=== PATIENT | female | born 1970 | race Two or more races ===

== ENCOUNTER → 2024-12-22 | Outpatient (CLI) | payer MEDICAID, SELFPAY ==
--- NOTE | 2024-12-22 09:00 | XR_ITS ---
Examination: Breast ultrasound, unilateral, left complete Date and time of exam: December 22, 2024 0859 hours INDICATIONS: Left breast pain beginning 3 months ago, family history breast cancer Technique: Real-time gama scale ultrasonographic imaging performed left breast including all 4 quadrants as well as nipple retroareolar and axillary region. Findings: 2:00 cyst 5 x 5 mm 8:00 cyst 5 x 4 mm No solid nodules IMPRESSION: BI-RADS Category 2: Benign findings
--- NOTE | 2024-12-22 09:30 | XR_ITS ---
Examination: Diagnostic digital mammography, unilateral, LEFT Computer aided detection 3-D breast Tomosynthesis, unilateral Date and time of exam: December 14, 2024 0911 hours INDICATIONS: Outside mammogram November 13, 2024 left breast 12:00 8mm nodule anterior depth Technique: Nonmagnified MLO, CC views of the left breast have been obtained, reconstructed from 3-D Tomosynthesis images. R2 computer aided detection program utilized for evaluation of suspicious masses and/or abnormal calcifications. 3-D Tomosynthesis images obtained. Findings: The breast is heterogeneously dense, which may obscure small masses Benign calcifications Mild focal asymmetry 14 mm outer left breast on the spot compression cc view Impression: BI-RADS Category 3: Probably benign findings One additional 6 month left mammogram follow-up is needed to document stability of focal asymmetry described above
== END | disposition home or self-care (01) ==
PROVIDERS: PCP Nurse Practitioner Family; Referring Provider Nurse Practitioner Family; Visit Provider Nurse Practitioner Family
DX: N64.89 Other specified disorders of breast (principal); N60.02 Solitary cyst of left breast
CPT/HCPCS: 76641; 77061; 77065; G0279

== ENCOUNTER 2024-12-25 13:00 | Outpatient (RCR) | payer MEDICAID, SELFPAY ==
--- NOTE | 2024-12-14 13:37 | PTNOTE_ITS ---
PT OP Initial Eval Patient Information Outpatient Physical Therapy Treatment Date: 12/14/24 Visit Reasons: BILATERAL SHOULDER PAIN Medical Diagnosis: M25.512 M25.511 Treatment Dx #1: B shoulder pain Start of Care: 12/14/24 Date of Onset: 3 months ago Smoking Status Smoking Status: Never smoker Initial Assessment Subjective: Pt is 54 yr old indonesian speaking female who reports B shoulder pain insidious onset x3 months. Increased pain with lifting things,reaching up and at night it hurts more. PMH: HTN, anxiety, Imaging: none Pt goal: less shoulder pain Objective: B shoulder AROM: ? FF: 105 deg ? Abd: 95 deg ? ER: 85 deg ? HBB: to glutes with pain ? Strength: 3+/5 in all planes Rincon-Cosmo: positive on L ? PROM: end-range pain with capsular tightness Assessment: Pt presents with decreased shoulder ROM and strength in all planes limited by pain L>R consistent with RC impingement/tendinopathy. Pt requires skilled therapy in order to decrease pain and improve ROM and strength and has fair rehab potential. Short Term and Residential Goals 1. Ind with HEP ? 2. Improved AROM of B shoulders to at least 135 deg FF, 125 deg abduction and 90 deg ? ER ? 3. Improved HBB ROM to L3 with min pain ? 4. Pt will reach OH x10 with <=4/10 pain Treatment Plan 1. Manual therapy ? 2. Therex ? 3. Modalities as indicated, moist heat pack, ice, electrical stimulation, Frequency and Duration: 1-2x a week for 12 sessions plus the eval Certification Dates: 12/14/24 to 03/16/25 Procedure Charges OP PT Eval Mod Complex 30 minutes: Yes
--- NOTE | 2024-12-25 13:43 | PT.ODAYNRPT ---
PT Outpatient Daily Note OP Daily Note Outpatient Physical Therapy Treatment Date: 12/25/24 Visit Reasons: BILATERAL SHOULDER PAIN Subjective: Pt reports B shoulder pain. Objective: Please see flow sheet for ther ex list. Assessment: Pt tolerated interventions for minimal pain and soreness. Applied MHP post PT session. Plan: Continue with pOC. Length of Time (minutes) of Treatment: 30 Minutes Procedure Charges Therapeutic Exercise 30 minutes: Yes
== END 2024-12-25 23:59 | disposition home or self-care (01) ==
LOC: CPTX 13:00
PROVIDERS: PCP Nurse Practitioner Family; Referring Provider Nurse Practitioner Family; Visit Provider Nurse Practitioner Family
DX: M25.512 Pain in left shoulder (principal); M25.511 Pain in right shoulder; I10 Essential (primary) hypertension
CPT/HCPCS: 97110; 97162

== ENCOUNTER 2025-03-30 16:39 | Emergency (ER) | payer MEDICAID, SELFPAY ==
[2025-03-30 17:10] VITALS: BP 144/83; PULSE 99; RESP 20; TEMP 37.1; O2SAT 97
--- NOTE | 2025-03-30 17:22 | XR_ITS ---
Examination: Foot, right, 3 views Technique: AP, oblique, lateral views foot, 3 views Date and time of exam: March 30, 2025 1743 hours INDICATIONS: Right foot pain primarily involving the heel 3 weeks FINDINGS: No acute fracture 8 mm plantar bony calcaneal spur Ossification in the Achilles insertion Ossification plantar fascia IMPRESSION: Plantar and posterior bony calcaneal spurs Ossification in the plantar fascia, seen with plantar fasciitis
--- NOTE | 2025-03-30 17:22 | PD.EDRME ---
Rapid Medical Screening Exam RME Arrival date/time: 03/30/25 16:39 This is a 54-year-old female that comes in with complaints of right foot pain. Patient states has been going on for 3 weeks. Patient denies any trauma. Patient states it is hard to walk on her heel. I have greeted and performed a focused initial assessment of this patient. Initial appropriate labs ordered at this time. A comprehensive ED assessment and evaluation of the patient and analysis of all test and completion of medical decision making process will be conducted by additional ED provider. Chief Complaint: Ankle/Foot Injury Time Seen by Provider: 03/30/25 17:06 Vital signs: Vital Signs Temperature 98.8 F 03/30/25 17:10 Pulse Rate 99 03/30/25 17:10 Respiratory Rate 20 03/30/25 17:10 Blood Pressure 144/83 H 03/30/25 17:10 Pulse Oximetry (%) 97 03/30/25 17:10 Oxygen Delivery Method Room Air 03/30/25 17:10
--- NOTE | 2025-03-30 19:14 | EDNOTE_ITS ---
Lower Extremity Injury RME/HPI General Chief Complaint: Ankle/Foot Injury Stated Complaint: R ANKLE PAIN X 2 WKS Time Seen by Provider: 03/30/25 17:06 Arrival date/time: 03/30/25 16:39 Limitations: no limitations RME / HPI RME / HPI Narrative: Patient is a 54-year-old female is here today of atraumatic right foot pain for the last 2 weeks. The pain is along the plantar surface. She has no injuries or falls. No puncture injuries. Denies any redness or swelling. Has no skin warmth. She has not seen her primary care provider for this. She has no other acute complaints or concerns. Related Data Previous Rx's ?Medication ?Instructions ?Recorded cyclobenzaprine 10 mg tablet 10 mg PO TID PRN muscle s pasm #30 03/10/24 tabs naproxen 500 mg tablet (Naprosyn) 500 mg PO BID PRN pa in #30 tabs 03/10/24 Allergies Allergy/AdvReac Type Severity Reaction Status Date / Time No Known Allergies Allergy Verified 03/30/25 16:39 Review of Systems Review of Systems Systems Reviewed: All systems reviewed, normal except as documented ED Exam General Limitations: Present no limitations General appearance: Present alert and in no apparent distress Head Head exam: Present atraumatic Eye Eye exam: Present normal appearance, PERRL and EOMI ENT ENT exam: Present normal exam, normal oropharynx and mucous membranes moist Neck Neck exam: Present normal inspection, full ROM and trachea midline Chest Chest inspection: Present normal inspection and symmetric chest wall rise Respiratory Respiratory exam: Present normal lung sounds bilaterally Cardiovascular Cardiovascular exam: Present regular rate and normal rhythm Abdominal Exam Abdominal exam: Present soft and normal bowel sounds Extremities Exam Extremities exam: Present normal inspection, full ROM and other Back Exam Back exam: Present normal inspection and full ROM Neurological Exam Neurological exam: Present alert and oriented X3 Psychiatric Psychiatric exam: Present normal affect and normal mood Skin Skin exam: Present warm, dry, intact and normal color Course Quality Measures none Orders Category Date Time Status XR foot comp RT min 3V Stat Exams 03/30/25 17:22 Completed Vital Signs Vital signs: Vital Signs Temperature 98.8 F 03/30/25 17:10 Pulse Rate 99 03/30/25 17:10 Respiratory Rate 20 03/30/25 17:10 Blood Pressure 144/83 H 03/30/25 17:10 Pulse Oximetry (%) 97 03/30/25 17:10 Oxygen Delivery Method Room Air 03/30/25 17:10 Extremity Injury, Lower MDM Narrative MDM Narrative:: Patient is a 54-year-old female is here today of atraumatic right foot pain for the last 2 weeks. The pain is along the plantar surface. She has no injuries or falls. No puncture injuries. Denies any redness or swelling. Has no skin warmth. She has not seen her primary care provider for this. She has no other acute complaints or concerns. On exam, vital signs are stable. She is mildly tender in the plantar surface with no joint erythema or edema. There is no joint laxity or crepitus. X-rays were obtained which revealed no acute osseous injury. We discussed likely plantar fasciitis. Patient will apply frequent cold compresses. Use supportive shoes. Use ibuprofen as needed. Follow-up with her primary clinic and consider referral to podiatry. Return as needed for any worsening or emergent changes. Patient data External records reviewed:: None Clinical information provided by:: patient Social determinants that could affect healthcare access:: none Patient has the following chronic illnesses:: n/a How is presenting disease/condition affected by chronic disease/condition?: no chronic disease Evaluation data The following diagnostics were reviewed and interpreted by me:: radiology exam(s) (No acute osseous injury) Lab and/or radiology exams considered but not ordered:: n/a Interpretation Summary: n/a Medications / Prescriptions Medications or Prescriptions considered but not ordered:: n/a Medication administrations:: n/a Consultations Consultation(s) initiated? (list below): No Diagnosis Most likely diagnosis given after review of the tests above:: n/a Admission Indicated Admission indicated?: not indicated Admission Request Was there a request for admission?: No Disposition Plan Disposition Plan: Discharge Discharge Attestation Discharge Attestation: The patient and all family members were given an opportunity to ask questions and understood the discharge instructions. Discharge instructions specifically effects, indications for sooner follow up or return to the emergency department, and the expected course of current diagnosis. Patient condition: Stable Discharge Plan Plan Patient Disposition: HOME (Self Care) Patient condition on transfer: Stable Prescriptions/Referrals Prescriptions/Med Rec: No Action cyclobenzaprine 10 mg tablet 10 mg PO TID PRN (Reason: muscle spasm) Qty: 30 0RF naproxen [Naprosyn] 500 mg tablet 500 mg PO BID PRN (Reason: pain) Qty: 30 0RF Referrals: Brittany Griffin MD [Primary Care Provider] - In 1 week Problem List Clinical Impression: Plantar fasciitis Patient/Caregiver Discharge Instructions Education Materials: ED Plantar Fasciitis Additional Instructions: Apply frequent cool compress in the mornings. Use Tylenol and ibuprofen as needed for comfort. Follow-up with your primary clinic to consider outpatient therapy or referral to podiatry. Return here as needed for any worsening or emergent changes. Print Language: Cook Islander Stand Alone Forms: [employer] Award Info., Patient Portal Info Letter
== END 2025-03-30 19:28 | disposition home or self-care (01) ==
PROVIDERS: Emergency Provider Emergency Medicine; PCP Obstetrics & Gynecology
DX: M72.2 Plantar fascial fibromatosis (principal)
CPT/HCPCS: 73630; 99283

== ENCOUNTER → 2025-05-25 | Outpatient (CLI) | payer MEDICAID, SELFPAY ==
--- NOTE | 2025-05-25 10:45 | XR_ITS ---
Examination: Diagnostic digital mammography, unilateral, left Computer aided detection 3-D breast Tomosynthesis, unilateral Date and time of exam: 05/25/2025, 10:07 AM Comparisons: October 2024, November 2024 Indications: Six-month follow-up of probably benign focal asymmetry outer left breast. Technique: Nonmagnified MLO, CC views of the left breast have been obtained, reconstructed from 3-D Tomosynthesis images. R2 computer aided detection program utilized for evaluation of suspicious masses and/or abnormal calcifications. 3-D Tomosynthesis images obtained. Technologist: Findings: There are scattered areas of fibroglandular density. No evidence of abnormal masses or suspicious calcifications. Impression: BI-RADS category 1: Negative findings (within normal) Recommend 1 year follow-up mammogram
== END | disposition home or self-care (01) ==
LOC: CDIM 09:57
PROVIDERS: Referring Provider Nurse Practitioner Family; Visit Provider Nurse Practitioner Family
DX: R92.312 Mammographic fatty tissue density, left breast (principal)
CPT/HCPCS: 77061; 77065; G0279